=== PATIENT | male | born 1970 | race Caucasian/White ===

== ENCOUNTER 2020-09-09 23:48 | Emergency (ER) | payer BC ==
[~2020-09-09] VITALS: Ht 177.8 cm; Wt 200.0 kg
[2020-09-09 23:48] VITALS: BP 128/79
--- NOTE | 2020-09-10 | PHYS DOC ---
Past History Past Medical History HIV Smoking: Non-smoker General Adult HPI: HPI: ".. I was stepping from boat...to dock and slipped.. landed on my Rt. side of chest...".. That was two days ago.. but I am really hurting bad.. worse today than yesterday..." Patient is a 50 year old male who presents with above hx of fall striking right back and chest wall at T12 level on edge of boat dock. Injury occurred 2 days ago and has had no improvement of chest discomfort. Patient does have findings of contusion on right back and chest wall. Anterior to post anterior wall compression exists but the pain in area of chest wall. Patient reports deep breaths cough or even exacerbates pain. Patient is currently splinting any movements of right chest wall. Patient also has some hepatic tenderness on palpation. Patient does have a significant past medical history of HIV with past 11 years which has been under control with meds. Patient reports his CD4 counts have remained stable. Patient currently follows with ID specialist at [facility]. No recent travel. No specific ill contacts. Review of Systems: Review of Systems: Constitutional: Denies fever or chills Eyes: Denies change in visual acuity HENT: Denies nasal congestion or sore throat Respiratory: Denies cough or shortness of breath Cardiovascular: Complains of right chest pain . GI: Complains of right upper abdomen pain. Denies nausea, vomiting, bloody stools or diarrhea : Denies dysuria Musculoskeletal: Denies back pain or joint pain Integument: Denies rash Neurologic: Denies headache, focal weakness or sensory changes Endocrine: Denies polyuria or polydipsia Lymphatic: Denies swollen glands Psychiatric: Denies depression or anxiety Family History: Family History: Noncontributory to presentation Current Medications: Current Meds: See nursing for home meds Allergies: Allergies: No known drug allergies Physical Exam: PE: Constitutional: Well developed, well nourished, in acute distress, non-toxic appearance. [] HENT: Normocephalic, atraumatic, bilateral external ears normal, oropharynx moist, no oral exudates, nose normal. [] Eyes: PERRLA, EOMI, conjunctiva normal, no discharge. [] Neck: Normal range of motion, no tenderness, supple, no stridor. [] Cardiovascular:Heart rate regular rhythm, no murmur [] Lungs & Thorax: Bilateral breath sounds equal apex with some basilar crackles on right base with auscultation [] . The patient has significant right chest wall tenderness and findings of a large contusion. Abdomen: Bowel sounds normal, soft, right upper quadrant abdomen tenderness, no masses, no pulsatile masses. Small umbilicus hernia. Rebound right upper quadrant Skin: Warm, dry, no erythema, no rash. Tattoos Back: No tenderness, Rt CVA tenderness and ecchymosis. Extremities: No tenderness, no cyanosis, no clubbing, ROM intact, no edema. No psoas sign. Neurologic: Alert and oriented X 3, normal motor function, normal sensory function, no focal deficits noted. [] Psychologic: Affect anxious, judgement normal, mood normal. [] EKG: EKG: [] Radiology/Procedures: Radiology/Procedures: [place] [address] IMAGING REPORT Signed PATIENT: BON CRISTOBAL ACCOUNT: [id number] : 1970 LOCATION: ER AGE: 50 SEX: M EXAM STATUS: REG ER ORD. PHYSICIAN: JUDI ANDERSEN MD REASON: fall on dock,, CP, and Rt., upper abd. pain, OMNI 300, 75ml PROCEDURE: CT CHEST ABDOMEN W/CONTRAST INDICATION: Reason: fall on dock,, CP, and Rt., upper abd. pain, OMNI 300, 75ml / Spl. Instructions: / History: . COMPARISON: Chest x-ray from earlier same day TECHNIQUE: Axial CT images obtained through the chest and abdomen. One or more of the following individualized dose reduction techniques were utilized for this examination: 1. Automated exposure control; 2. Adjustment of the mA and/or kV according to patient size; 3. Use of iterative reconstruction technique. FINDINGS: Patchy opacities at the lung bases. No evidence of pneumothorax. Trace right greater than left pleural effusion. Scattered lymph nodes in the mediastinum. No evidence of thoracic aortic aneurysm. Portion of ascending thoracic aorta obscured by motion. Degenerative changes of the spine. Rib fractures are identified including the right 12th, 11th, 10th. ABDOMEN: Abdominal aorta is not aneurysmal. No evidence of perihepatic hemorrhage. No peripancreatic fluid collection. Spleen unremarkable. No hydronephrosis. Multiple nonobstructive left greater than right renal stones. Degenerative changes the spine. Small fat-containing umbilical hernia. IMPRESSION: * Multiple acute right rib fractures. * Trace right greater than left pleural effusion. * Patchy opacities at the lung bases. Could be secondary to atelectasis. Given the proximity to the rib fractures on the right low-grade contusion is also within the differential. Electronically signed by: Kian De Los Santos MD (09/10/2020 3:19 AM) [id number] DICTATED AND SIGNED BY: KIAN DE LOS SANTOS MD DATE: 09/10/20 0304 CC: JUDI ANDERSEN MD; PCP,NO ~MTH0 0 [][address] [address] IMAGING REPORT Signed PATIENT: BON CRISTOBAL ACCOUNT: [id number] : 1970 LOCATION: ER AGE: 50 SEX: M EXAM STATUS: REG ER ORD. PHYSICIAN: JUDI ANDERSEN MD REASON: fall yesterday, RIGHT SIDE PAIN PROCEDURE: CHEST PA & LATERAL INDICATION: Reason: fall yesterday, RIGHT SIDE PAIN / Spl. Instructions: / History: COMPARISON: None. FINDINGS: 2 view of chest obtained. Cardiac silhouette is unremarkable. Linear opacities at the lung bases. Degenerative changes spine IMPRESSION: * Linear opacities lung bases could be secondary to atelectasis or infiltrate Electronically signed by: Kian De Los Santos MD (09/10/2020 1:37 AM) [id number] DICTATED AND SIGNED BY: KIAN DE LOS SANTOS MD DATE: 09/10/20 0136 CC: JUDI ANDERSEN MD; PCP,NO ~MTH0 0 Heart Score: C/O Chest Pain: N/A HEART Score for Chest Pain: HEART Score for Chest Pain Response (Comments) Value History Slighlty/Non-Suspicious 0 Total 0 Risk Factors: Risk Factors: DM, Current or recent (<one month) smoker, HTN, HLP, family hist ory of CAD, obesity. Risk Scores: Score 0 - 3: 2.5% MACE over next 6 weeks - Discharge Home Score 4 - 6: 20.3% MACE over next 6 weeks - Admit for Clinical Observation Score 7 - 10: 72.7% MACE over next 6 weeks - Early Invasive Strategies Course & Med Decision Making: Course & Med Decision Making Pertinent Labs and Imaging studies reviewed. (See chart for details) Patient take Tylenol and ibuprofen as needed for pain. Patient not to splint chest. Patient to concentrate on taking deep breaths and using incentive spirometry. Patient to take his HIV meds as previous directed. For marked pain may take a Vicoprofen up to 4 times a day. Patient follow-up primary care. Patient follow-up with ID. Patient return if any concerns. Impression: 1. Right chest wall contusion 2. Fractures of right rib 12,11 and 10. 3. History of HIV (currently under suppressive medication) [] Dragon Disclaimer: Dragon Disclaimer: This electronic medical record was generated, in whole or in part, using a voice recognition dictation system. Departure Departure: Referrals: PCP,NO (PCP) Scripts Hydrocodone/Ibuprofen (HYDROCODONE-IBUPROFEN 7.5-200 ) 1 Each Tablet 1 TAB PO PRN Q6HRS PRN for PAIN, #30 TAB 0 Refills Prov: JUDI ANDERSEN MD 09/10/20 X[place] Disclaimer This chart was dictated in whole or in part using Voice Recognition software in a busy, high-work load, and often noisy Emergency Department environment. It may contain unintended and wholly unrecognized errors or omissions. JUDI ANDERSEN MD September 10, 2020 00:00
[2020-09-10] MEDS ORDERED: MORPHINE SULFATE 10 MG/ML SYRINGE. SQ ONE ×2 (00:15→03:45)
[2020-09-10] MEDS ORDERED: CONTRAST GIVEN. MC PRN (00:30)
[2020-09-10] MEDS ORDERED: IOHEXOL 300 MG/ML 75 ML VIAL. IV ONE (00:30)
[2020-09-10] MEDS ORDERED: fentaNYL PF 250 MCG/5 ML VIAL IV ONE (01:30)
--- NOTE | 2020-09-10 01:40 | RAD ---
INDICATION: Reason: fall yesterday, RIGHT SIDE PAIN / Spl. Instructions: / History: COMPARISON: None. FINDINGS: 2 view of chest obtained. Cardiac silhouette is unremarkable. Linear opacities at the lung bases. Degenerative changes spine IMPRESSION: * Linear opacities lung bases could be secondary to atelectasis or infiltrate Electronically signed by: Jatinder De Los Santos MD (09/10/2020 1:37 AM) [id number]
--- NOTE | 2020-09-10 03:22 | RAD ---
INDICATION: Reason: fall on dock,, CP, and Rt., upper abd. pain, OMNI 300, 75ml / Spl. Instructions: / History: . COMPARISON: Chest x-ray from earlier same day TECHNIQUE: Axial CT images obtained through the chest and abdomen. One or more of the following individualized dose reduction techniques were utilized for this examinat ion: 1. Automated exposure control; 2. Adjustment of the mA and/or kV according to patient size; 3 . Use of iterative reconstruction technique. FINDINGS: Patchy opacities at the lung bases. No evidence of pneumothorax. Trace right greater than left pleural effusion. Scattered lymph nodes in the mediastinum. No evidence of thoracic aortic aneurysm. Portion of ascending thoracic aorta obscured by motion. Degenerative changes of the spine. Rib fractures are identified including the right 12th, 11th, 10th. ABDOMEN: Abdominal aorta is not aneurysmal. No evidence of perihepatic hemorrhage. No peripancreatic fluid collection. Spleen unremarkable. No hydronephrosis. Multiple nonobstructive left greater than right renal stones. Degenerative changes the spine. Small fat-containing umbilical hernia. IMPRESSION: * Multiple acute right rib fractures. * Trace right greater than left pleural effusion. * Patchy opacities at the lung bases. Could be secondary to atelectasis. Given the proximity to the rib fractures on the right low-grade contusion is also within the differential. Electronically signed by: Jatinder De Los Santos MD (09/10/2020 3:19 AM) [id number]
[2020-09-10] MEDS ORDERED: HYDR-1179 PO (03:45)
[2020-09-10] MEDS ORDERED: ALBUTEROL SULFATE 8GM INHALER. INH ONE (04:00)
== END 2020-09-10 04:50 | disposition home or self-care (01) ==
LOC: ER 23:48
DX: S22.31XA Fracture of one rib, right side, initial encounter for closed fracture (principal); R10.11 Right upper quadrant pain; W01.0XXA Fall on same level from slipping, tripping and stumbling without subsequent striking against object, initial encounter; Y93.89 Activity, other specified; Y92.89 Other specified places as the place of occurrence of the external cause; Y99.8 Other external cause status
CPT/HCPCS: 71046; 71260; 74160; 94640; 96372; 96374; 96376; 99285; J2270; J3010; Q9967; 96375; 94664